=== PATIENT | male | born 1950 | race Caucasian/White ===

== ENCOUNTER → 2016-06-05 | Outpatient (CLI) | payer OTHER ==
[~2016-06-05] VITALS: Ht 182.9 cm; Wt 87.5 kg
[~2016-06-05] MED LIST: ECHCCRMCMP PO; ESOM20CA PO; TAMS0.4C38 PO; ULT/50 PO; VALA500T60 PO
[2016-06-05 13:15] VITALS: BP 125/74; PULSE 57; Ht 182.9 cm; Wt 87.5 kg
== END | disposition home or self-care (01) ==
LOC: C.NEUR 12:34
PROVIDERS: ATTEND Internal Medicine Pulmonary Disease
DX: G47.30 Sleep apnea, unspecified (principal)

== ENCOUNTER → 2017-06-16 | Outpatient (CLI) | payer OTHER ==
--- NOTE | 2017-06-16 11:37 | DIAGNOSTIC IMAGING REPORT ---
ANKLE BRACHIAL INDEX COMPLETE CLINICAL HISTORY: BILATERAL LEG, PERIPHERAL VASCULAR DISEASE COMPARISON STUDY: None. FINDINGS: The right ankle-brachial measured with the posterior tibial artery is 1.0 and the dorsalis pedis artery is 0.91. The left ankle-brachial measure with the posterior tibial artery is 1.0 and the dorsalis pedis artery is 0.94. IMPRESSION: Normal bilateral ankle brachial indices as described above. Electronically signed by: Thomas Pierre M.D. 06/16/2017 11:36 AM Dictated Date/Time: 06/16/2017 11:35 AM
== END | disposition home or self-care (01) ==
LOC: C.ULTR 10:43
PROVIDERS: ATTEND Internal Medicine
DX: I73.9 Peripheral vascular disease, unspecified (principal)

== ENCOUNTER 2025-04-06 06:40 | Observation (INO) ==
--- NOTE | 2025-03-02 13:55 | PAT Medication Instructions ---
Medication Instructions Date of Service March 02, 2025 Home Medications finasteride 5 mg tablet (Proscar) 5 mg PO HS metoprolol succinate 25 mg tablet,extended release 24 hr 25 mg PO QPM tamsulosin 0.4 mg capsule (Flomax) 0.4 mg PO HS famotidine 20 mg tablet 20 mg PO QPM PRN Reflux fluticasone propionate 50 mcg/actuation nasal spray,suspension (Flonase Allergy Relief) 1 spray intranasal BID PRN sinus congestion sildenafil 50 mg tablet (Viagra) 50 mg PO DAILY PRN Sexual Activity cetirizine 10 mg tablet (Zyrtec) 10 mg PO QAM acetaminophen 500 mg tablet 500 mg PO QID PRN Pain cholecalciferol (vitamin D3) 125 mcg (5,000 unit) tablet (Vitamin D3) 125 mcg PO QAM fexofenadine 180 mg tablet 180 mg PO QAM DO NOT take the morning of surgery sildenafil 50 mg tablet (Viagra) 50 mg PO DAILY PRN Sexual Activity cetirizine 10 mg tablet (Zyrtec) 10 mg PO QAM cholecalciferol (vitamin D3) 125 mcg (5,000 unit) tablet (Vitamin D3) 125 mcg PO QAM fexofenadine 180 mg tablet 180 mg PO QAM Take morning of surgery With a small sip of water, OTHERWISE NOTHING TO EAT OR DRINK AFTER MIDNIGHT: famotidine 20 mg tablet 20 mg PO QPM PRN Reflux (if needed) fluticasone propionate 50 mcg/actuation nasal spray,suspension (Flonase Allergy Relief) 1 spray intranasal BID PRN sinus congestion (if needed) acetaminophen 500 mg tablet 500 mg PO QID PRN Pain (if needed) Take evening before surgery finasteride 5 mg tablet (Proscar) 5 mg PO HS metoprolol succinate 25 mg tablet,extended release 24 hr 25 mg PO QPM tamsulosin 0.4 mg capsule (Flomax) 0.4 mg PO HS famotidine 20 mg tablet 20 mg PO QPM PRN Reflux (if needed) fluticasone propionate 50 mcg/actuation nasal spray,suspension (Flonase Allergy Relief) 1 spray intranasal BID PRN sinus congestion (if needed) acetaminophen 500 mg tablet 500 mg PO QID PRN Pain (if needed) Other Notes If you have any questions please call us at [phone] or [phone] or [phone] or [phone]
--- NOTE | 2025-03-10 11:43 | Anesthesiology Consultation ---
Date of Service March 10, 2025 Assessment & Plan (1) Encounter for pre-operative examination: - awaiting surgeon ordered medical clearance, 03/21-Dr. Blank. - cardiology clearance 01/25/25: "...denies any chest pain or chest pressure...cardiomyopathy. Dilated aortic root. PVC...doing well...LV function has returned to normal post ablation...EKG today reveals sinus bradycardia with no ventricular ectopy...tolerating low-dose beta-odell on any palpitations warning signs or symptoms of chronotropic incomplete...knee replacement surgery...can proceed with surgery...risk is about 2% with regards to cardiac complications...will see him back in 6 months with an echo..." - chlorhexidine wipes not provided to patient. Chart Review Chart Review: Pending: Refer to Additional Notes / Consult section and Patient seen in Pre Admission Testing Teaching & Discussion Pre-Anesthesia Teaching/Discussion Notes: Instructed NPO after midnight before surgery, except medications with 15 cc of water. Medication instructions provided according to the PAT guidelines. History Surgery Operation Date: 04/06/25 08:15 Proposed Procedures p Left Total Knee Arthroplasty - Justen Valiente MD Height/Weight Height: 5 ft 11 in Weight: 84.4 kg Allergies Allergy/AdvReac Type Severity Reaction Status Date / Time Iodinated Contrast Media Allergy Severe Anaphylaxis Verified 03/02/25 10:45 chlorhexidine Allergy Mild Rash Verified 03/02/25 10:45 pregabalin AdvReac Intermediate Dizzines, Verified 03/02/25 10:45 "knocked me out" ritonavir [From Paxlovid] AdvReac Intermediate GI upset Verified 03/02/25 10:45 Medications Home Medications Medication Instructions Recorded Confirmed Last Taken finasteride 5 mg tablet (Proscar) 5 mg PO HS 07/09/23 03/02/25 08/09/23 18:00 metoprolol succinate 25 mg 25 mg PO QPM 07/09/23 03/02/25 08/09/23 18:00 tablet,extended release 24 hr tamsulosin 0.4 mg capsule (Flomax) 0.4 mg PO HS 07/09/23 03/02/25 08/09/23 18:00 famotidine 20 mg tablet 20 mg PO QPM PRN Reflux 07/15/23 03/02/25 1 Week Ago ~08/03/23 fluticasone propionate 50 1 spray intranasal BID PRN sinus 07/15/23 03/02/25 1 Month Ago mcg/actuation nasal congestion ~07/12/23 spray,suspension (Flonase Allergy Relief) sildenafil 50 mg tablet (Viagra) 50 mg PO DAILY PRN Sexual Activity 07/15/23 03/02/25 3 Weeks Ago ~07/20/23 cetirizine 10 mg tablet (Zyrtec) 10 mg PO QAM 08/10/23 03/02/25 08/09/23 08:00 acetaminophen 500 mg tablet 500 mg PO QID PRN Pain 12/25/23 03/02/25 Unknown cholecalciferol (vitamin D3) 125 125 mcg PO QAM 12/25/23 03/02/25 Unknown mcg (5,000 unit) tablet (Vitamin D3) fexofenadine 180 mg tablet 180 mg PO QAM 03/02/25 03/02/25 Unknown baclofen 5 mg tablet 5 mg PO DAILY 03/10/25 03/10/25 Unknown Additional Notes: Patient was instructed can continue baclofen as needed, he is no longer taking pregabalin. Past Medical History Medical History Adverse effect of anesthesia "Sometimes when I wake up I spout off and might cuss" BPH (benign prostatic hyperplasia) Degenerative disc disease, lumbar Dilated aortic root [facility] Cardiology Dr Arevalo most recent echo 07/2024 as per cardio note DJD (degenerative joint disease) History of COVID-19 (~2022) 2022- symptoms resolved History of Lyme disease > 10 yrs ago, completed antibiotic tx History of peptic ulcer disease History of shingles x3 Right flank and abdomen 05/2023 > resolved History of skin cancer s/p excision, face and ear-Mohs surgery Hx of gastroesophageal reflux (GERD) controlled, stable per pt Hypertension controlled, stable per pt Moderate tricuspid regurgitation PS Cardiology Dr Arevalo Nonischemic cardiomyopathy [facility] Cardiology Dr Arevalo PVC (premature ventricular contraction) s/p ablation 2020, follows with Dr. Arevalo Sciatica Follows with Dr Shine and has had injections in the past - next is 03/03/25 and to possibly have nerve block 03/16/25 Sleep apnea No device Patient denies h/o stroke, seizures, heart attack, DM, blood clots/DVTs or blood transfusions. Exercise / Class Metabolic Activity II 4-5 Yardwork/Stairs/Walk up hill (denies chest discomfort or shortness of breath with one flight of stairs) Past Family History Family History Other No family history of adverse response to anesthesia Past Surgical History Surgical History H/O arthroscopic knee surgery Right x2, Left x1 H/O arthroscopy of shoulder Right (bone spur removed) H/O cardiac radiofrequency ablation 2020 r/t PVCs History of colonoscopy History of esophagogastroduodenoscopy (EGD) History of repair of pyloric stenosis infancy History of tooth extraction S/P right unicompartmental knee replacement Right uni-compartmental knee replacement (08/10/23): SAB (2 attempts) L3-4 + regional at [facility] Past Anesthesia History No Family Hx of Anesthesia Complications History of PONV No Hx of Motion Sickness and History of PONV Social History Smoking Status: Never smoker Do You Dip or Chew Tobacco: No Hx Alcohol Use: Yes Alcohol type: beer alcohol intake frequency: 0-2 drinks per day Hx Substance Use: No substance use type: does not use Review of Systems Patient denies chest pain, shortness of breath, dyspnea on exertion, fever, chills, cough, wheezing, or palpitations. Physical Exam Vital Signs Vitals BP 102/68 P 52 TEMP 98.1 SP02 98% on RA RESP 17 Physical Patient resting comfortably in chair in no acute distress, alert and oriented, responding appropriately throughout visit Full cervical extension range of motion without pain TMD 3.5 finger breadths Mallampati Score 3 Dentition: several implants, bridge, caps/crowns, denies chipped or loose teeth Lungs: normal respiratory effort. Good air movement, clear throughout to auscultation, no adventitious breath sounds Cardiac: bradycardic, regular rhythm, no murmurs noted Carotid arteries: negative bruit bilat Lab Results Anesthesia Preop Results Results Anesthesia Widget: WBC 4.95 K/ul (4.8-10.8) 03/10/25 Hgb 14.7 g/dl (14.0-18.0) 03/10/25 Hct 42.5 % (42.0-52.0) 03/10/25 Plt 278 K/uL (130-400) 03/10/25 Na 139 mmol/L (136-145) 03/10/25 K 4.6 mmol/L (3.5-5.1) 03/10/25 Cl 104 mmol/L (98-107) 03/10/25 CO2 30 mmol/L (21-32) 03/10/25 BUN 16 mg/dl (6-23) 03/10/25 Creat 0.84 mg/dl (0.6-1.4) 03/10/25 Glucose Level 104 mg/dl (70-99(Fasting)) H 03/10/25 PT 10.9 Seconds (9.0-12.0) 03/10/25 PTT 31 Seconds (21-31) 03/10/25 INR 1.0 (0.9-1.1) 03/10/25 Urine Color Yellow 03/10/25 Urine Appearance Clear (Clear) 03/10/25 Urine pH 6.0 (4.5-7.5) 03/10/25 Urine Specific [place] 1.017 (1.000-1.030) 03/10/25 Urine Protein Negative (Negative) 03/10/25 Urine Glucose (UA) Negative (Negative) 03/10/25 Urine Ketones Negative (Negative) 03/10/25 Urine Blood Negative (Negative) 03/10/25 Urine Nitrite Negative (Negative) 03/10/25 Urine Bilirubin Negative (Negative) 03/10/25 Urine Urobilinogen Negative (Negative) 03/10/25 Urine Leukocyte Esterase Negative (Negative) 03/10/25 Blood Type A Negative 03/10/25 Antibody Screen NEGATIVE 03/10/25 Testing Electrocardiogram Date: 01/25/25 Marked sinus bradycardia, rate 43 bpm Chest X-Ray Date: 03/10/25 No acute findings. Echocardiogram Date: 07/20/23 EF 60% No regional wall motion abnormalities Mild LVH Grade I diastolic dysfunction Moderate RV dilation Mild biatrial dilation Dilated aortic root 4.4 cm, ascending aorta 4 cm and aortic arch 3.6 cm Mild mitral valve regurgitation Moderate tricuspid regurgitation Mildly elevated pulmonary artery pressures, estimated PASP 32 mmHg Stress Test Date: 11/12/20 MPHR 56% METS 8 Negative exercise ECG for ischemia, cannot exclude ischemia at higher heart rates EF 50% Mild global hypokinesis with no regional wall motion abnormalities No LVH
[~2025-04-06 06:40] MED LIST changes: +BUPIVACAINE 0.25% PF 30 ML VIAL ONE; +BUPIVACAINE 0.5 % 5 MG/1 ML PF 10ML VIAL ONE; -ECHCCRMCMP PO; -ESOM20CA PO; -TAMS0.4C38 PO; -ULT/50 PO; -VALA500T60 PO
[2025-04-06] MEDS: LR 500ML BOLUS, THEN 15ML/HR IV SCH (07:21)
[2025-04-06] MEDS: FAMOTIDINE 20 MG TAB PO SCH (07:21)
[2025-04-06] MEDS: dexAMETHasone**PF** 10 MG/ML VIAL IV SCH (07:22)
[2025-04-06] MEDS: CeleBREX 200 MG CAP PO SCH ×2 (07:23→21:29)
[2025-04-06] MEDS: ACETAMINOPHEN 500 MG TAB PO SCH (07:23)
[2025-04-06] MEDS: LR 60ML/HR IV SCH (07:29)
[2025-04-06] MEDS ORDERED: MIDAZOLAM HCL 1 MG/ML 2ML VIAL ONE (07:32)
--- NOTE | 2025-04-06 07:36 | History & Physical Bridge Note ---
Date of Service April 06, 2025 History & Physical Bridge Note I have examined the patient, reviewed the History & Physical and in the interval since the performance of the History & Physical I have noted the following changes of clinical significance: no changes noted
[2025-04-06] MEDS: TRANEXAMIC ACID 1,000 MG **IV Pre-op IV SCH (07:55)
[2025-04-06] MEDS ORDERED: ATROPINE SULFATE 0.1 MG/ML 10ML SYR IV PRN (07:56)
[2025-04-06] MEDS ORDERED: ONDANSETRON INJ 2 MG/ML 2 ML VIAL IV PRN ×2 (07:56→09:56)
[2025-04-06] MEDS ORDERED: HYDROmorphone INJ 1 MG/ML SYRINGE IV PRN (07:56)
[2025-04-06] MEDS ORDERED: PROPOFOL IV EMULSION 10 MG/ML 20 ML VIAL IV ONE (08:23)
[2025-04-06] MEDS ORDERED: ONDANSETRON INJ 2 MG/ML 2 ML VIAL ONE (08:31)
[2025-04-06] MEDS: ORTHO JOINT ANESTHETIC ONE (08:48)
[2025-04-06] MEDS: ROPIV 0.5% 246mg, Ketorolac 30mg, EPINEPHrine 0.5mg in NSS INFIL SCH (09:25)
--- NOTE | 2025-04-06 09:52 | Operative Report ---
Post Operative Report Pre & Post Diagnosis Operation Date: 04/06/25 08:15 Pre-Op Diagnosis: Left Knee Osteoarthritis Post-Op Diagnosis: Left Knee Osteoarthritis I identified the patient and participated in the time-out.: Yes Procedure Operation Date: 04/06/25 08:15 Actual Procedures p Left Total Knee Arthroplasty(Left) - Justen Valiente MD Surgeon Justen Valiente MD [employer] Cattle Farmer LASHAUN Trevino PA-C. No resident or fellow was available to assist. Estimated Blood Loss 50 Findings Consistent with Post-Op Diagnosis Specimens Left knee bone and soft tissue contents Anesthesia Type Spinal MAC Complications none Disposition Disposition: Recovery Room Indications 74-year-old male with left knee osteoarthritis refractory to conservative management. X-rays demonstrate [id number]-caxd disease in the medial compartment of the knee is seen on the PA flexed view. He has a medical history significant for a left knee infection following a cortisone injection about 15 years requiring arthroscopic I&D. He has not had any infectious symptoms since. I had a long discussion with him about the risks and benefits of surgery, alternatives to surgery, and expected outcomes. After reviewing all these he elected to proceed with surgery. All questions were answered. Informed consent was signed. Description of Procedure Patient was identified in the preoperative holding area where the surgical site, left knee, was marked. Spinal anesthetic was placed by anesthesia. Patient was brought back to the operating room, placed on the operating room table, and IV sedation was administered. A bump was placed underneath the ipsilateral hip. All bony prominences were padded. Perioperative antibiotics and tranexamic acid were administered. Exam under anesthesia was performed. This demonstrated range of motion from 3 degrees to 110 degrees. Stable to varus and valgus at 30 degrees. The surgical site was prepped and draped in the normal sterile fashion. Prior to incision a multidisciplinary timeout was called. All in the room were in agreement. We began by exsanguinating the limb with an Esmarch bandage. Tourniquet was inflated to 250 mmHg. A 14 cm long incision was made over the anterior aspect of the knee. I dissected through the subcutaneous tissues to the level of the fascia. Full-thickness flaps were raised above the fascia. A median parapatellar arthrotomy was made. Half the fat pad was excised. A medial release was performed with Bovie electrocautery on the proximal tibia. Synovitis in the knee and suprapatellar pouch was removed. The patella was then everted and held with 2 towel clips. The thickness of the patella was measured at 25 mm. Patellar resection was performed. Caliper showed the patella thickness now to be 15 mm. A size 41 trial was placed and had a great fit. The 3 drill holes were placed then the trial button was placed. The patellar thickness was now 26 mm which I was very happy with. The patellar trial was then removed, and the knee was flexed up. Retractors were placed to protect the MCL and LCL. Osteophytes were removed from the femoral condyles and intercondylar notch. The ACL and PCL were excised. Intramedullary drill guide was drilled into the femur. Distal femoral cutting guide was placed set at 5 degrees of valgus to resect 10 mm off the distal femur. Distal femoral resection was made without difficulty. The tibia was then exposed. The lateral meniscus was sharply excised. The tibial cutting jig was positioned in line with the tibial shaft in the coronal plane and with 3 degrees of posterior slope in the sagittal plane to resect 4 mm off the more involved compartment. The jig was then pinned in position and the tibial cut was made. We then brought the knee into full extension. Lamina spreaders were placed. The medial meniscus was excised. The extension block was then placed for 5 mm thickness poly. This gave us full extension and excellent stability to varus and valgus stress. Next the extension block was removed, the knee was flexed up, collateral ligaments were protected, and the epicondylar axis and Whitesides line were marked out on the distal femoral cut. Femoral sizing guide was placed. External rotation was set at 5 degrees so that the posterior cut would be parallel with the epicondylar axis and perpendicular with Whitesides line. The patient sized to a size 7 femur. 2 pins were then placed through the jig into the distal femur. The jig was removed and the appropriately sized 4-in-1 cutting jig was placed over the pins, then fixated to the bone using threaded, headed pins. We confirmed that we would not notch the femur with our anterior cut. Our 4 cuts were then made. The cutting jig was removed. The flexion block was then placed with the knee held at 90 degrees. There was excellent stability to varus and valgus at 90 degrees with no gapping medially or laterally. Next the box cutting jig was placed on the distal femur. The box cut was made a nd the femoral trial was impacted into position. Lug holes were drilled in the distal femur. We then reexposed the tibia. The tibia was sized to a 7 for a fixed bearing component and pinned in external rotation on the cut tibial surface. The intramedullary drill followed by the keel punch were used to prepare the tibia. The tibial tray with a 5 mm thickness polyethylene liner was placed and the knee was brought through a full range of motion. There was excellent stability to varus valgus stress throughout a full range of motion, which was approximately 0-125 degrees. Next the trial components were removed. I then injected the posterior capsule and periosteum with the periarticular injection cocktail. The bone cuts were then irrigated and dried while the cement was mixed on the back table. The femoral component was cemented on first. Excess cement was removed. A lap sponge was placed over the femoral component for protection, then the tibia was subluxated anteriorly. The all polyethylene tibial component was then cemented in place. Again excess cement was removed. The knee was brought into full extension and held there until the cement cured. The patella was cemented and clamped. Dilute Betadine solution was then allowed to soak in the knee while the cement cured. Once the cement was fully cured, the knee was irrigated out, the tourniquet was let down and meticulous hemostasis was ensured. The knee was brought through a full range of motion. I was were very happy with the patella tracking and the stability. We then began to close. Interrupted 0 Vicryl suture was used to repair the patellar retinaculum in [id number] fashion. The quadriceps and patellar tendons were run with #1 Vicryl. The deep dermal layer was closed with interrupted 2-0 Vicryl. Dermabond and Zipline was used for the skin, followed by a Silverlon dressing. A compressive Kadeem wrap was placed and the knee was placed into a knee immobilizer. Patient's sedation was lifted and was transferred to recovery room in stable condition. Summary of implants: Depuy Attune Posterior Stabilized Cemented Femur, size 7 left Attune All-polyethylene tibial component, posterior stabilized 5 mm thickness, size 7 Attune patella medialized dome, size 41 2 batches of Palacos bone cement Postoperative course: Patient will be admitted to the floor for pain control and monitoring. Weightbearing as tolerated with a walker with no knee range of motion for 48 hours. Aspirin for DVT prophylaxis. I attest to the content of the Intraoperative Record and any orders documented therein. Any exceptions are noted below.
--- NOTE | 2025-04-06 09:53 | Operative Report ---
Post Operative Report Pre & Post Diagnosis Operation Date: 04/06/25 08:15 Pre-Op Diagnosis: Left Knee Osteoarthritis Post-Op Diagnosis: Left Knee Osteoarthritis I identified the patient and participated in the time-out.: Yes Procedure Operation Date: 04/06/25 08:15 Actual Procedures p Left Total Knee Arthroplasty(Left) - Justen Valiente MD Surgeon Justen Valiente MD Barn Operator Blair Trevino PA-Jonathan Estimated Blood Loss 50 Findings Consistent with Post-Op Diagnosis Specimens Left knee bone and soft tissue; left knee synovium Description of Procedure I was present during the entire case assisting with positioning, prepping, draping, wound retraction, wound closure, dressing and immobilizer placement. No fellow present. Please see Dr. Valiente operative note for specifics of the case. I attest to the content of the Intraoperative Record and any orders documented therein. Any exceptions are noted below.
[2025-04-06] MEDS ORDERED: MAGNESIUM HYDROXIDE SUSP 30 ML UDC PO PRN (09:56)
[2025-04-06] MEDS ORDERED: ALUMINUM/MAGNESIUM SUSP 30 ML UDC PO PRN (09:56)
[2025-04-06] MEDS ORDERED: METOCLOPRAMIDE HCL INJ 5 MG/ML 2 ML VIAL IV PRN (09:56)
[2025-04-06] MEDS ORDERED: HYDROmorphone INJ 0.5 MG/0.5 ML SYR IV PRN (09:56)
[2025-04-06] MEDS ORDERED: NALOXONE HCL 0.4 MG/1 ML VIAL/CARP IV PRN (09:56)
--- NOTE | 2025-04-06 10:25 | XRay Report ---
XR knee LT 1 or 2V routine CLINICAL HISTORY: Postoperative evaluation. COMPARISON: Left knee radiographs March 10, 2025. FINDINGS: Alignment of the total left knee arthroplasty is anatomic. There is no periprosthetic frac ture or unexpected radiopaque foreign body. There is a polyethylene tibial component. IMPRESSION: Expected findings following total left knee arthroplasty. ACT 112: Negative or not required by law. Electronically signed by: Luis Antonio Lambert M.D. 04/06/2025 10:24 AM
--- NOTE | 2025-04-06 10:29 | Anesthesiology Progress Note ---
Date of Service April 06, 2025 Anesthesia Post Procedure Vital Signs Vital Signs: Temp Pulse Pulse Resp BP Pulse Ox O2 Del Method 04/06/25 10:15 59 L 15 123/67 92 Room Air 04/06/25 10:10 36.4 C L 59 L 21 123/72 95 Room Air 04/06/25 10:00 59 L 16 126/66 95 Room Air 04/06/25 09:52 36.1 C L 59 L 21 113/68 96 Room Air 04/06/25 07:37 36.6 C 61 20 150/85 H 96 Room Air Transfer of Care Handoff Completed per policy Notes Mental Status: alert / awake / arousable and participated in evaluation Patient Amnestic to Procedure: Yes Nausea / Vomiting: adequately controlled Pain: adequately controlled Airway Patency, RR, SpO2: stable & adequate BP & HR: stable & adequate Hydration State: stable & adequate Neuraxial Anesthesia: was administered and sensory block is resolving Anesthetic Complications: no major complications apparent and Pt Satisfied with anesthetic care
[2025-04-06] MEDS ORDERED: FLUTICASONE PROPIONATE NA SPR 16 GM BTL NAE PRN (12:08)
[2025-04-06] MEDS ORDERED: NON-FORMULARY MEDICATION (Sildenafil [Viagra] 50 mg Tablet) PO PRN (12:08)
[2025-04-06] MEDS ORDERED: FAMOTIDINE 20 MG TAB PO PRN (12:08)
[2025-04-06] MEDS: SODIUM CHLORIDE 0.9% 1,000 ML IV SCH (12:35)
[2025-04-06] MEDS: KETOROLAC TROMETHAMINE 15 MG/ML VIAL IV SCH (12:36)
[2025-04-06] MEDS: Scopolamine CHECK PATCH PLACEMENT SCH (16:22)
[2025-04-06] MEDS: ACETAMINOPHEN 500 MG TAB PO PRN (19:27)
[2025-04-06] MEDS: METOPROLOL SUCC 25MG EXT REL TAB PO SCH (21:25)
[2025-04-06] MEDS: DOCUSATE SODIUM 100 MG CAP PO SCH (21:29)
[2025-04-06] MEDS: FINASTERIDE 5 MG TAB PO SCH (21:29)
[2025-04-06] MEDS: SENNA 8.6 MG TAB PO SCH (21:29)
[2025-04-06] MEDS: TAMSULOSIN HCL 0.4 MG CAP PO SCH (21:29)
[2025-04-07 06:40] LABS: Hematocrit (blood only) 35.7 % (42.0-52.0); Hemoglobin 12.5 g/dl (14.0-18.0); Mean Corpuscular Hemoglobin 31.2 pg (25.0-34.0); Mean Corpuscular Volume 89.0 fL (80.0-100.0); Platelet Count 229 K/uL (130-400); RDW Standard Deviation 40.6 fL (36.4-46.3); Red Blood Count 4.01 M/uL (4.70-6.10); White Blood Count 11.73 K/ul (4.8-10.8)
[2025-04-07 06:59] LABS: Anion Gap 7.0 (3-11); Blood Urea Nitrogen 22.0 mg/dl (6-23); Calcium 8.3 mg/dl (8.6-10.3); Carbon Dioxide 25.0 mmol/L (21-32); Chloride 109.0 mmol/L (98-107); Creatinine Clr Calc Pharmacy 59.0 ml/min; Glucose 94.0 mg/dl (70-99(Fasting)); Potassium 3.8 mmol/L (3.5-5.1); Sodium 141.0 mmol/L (136-145)
[2025-04-07] MEDS: MULTIVITAMIN TAB PO SCH (08:39)
[2025-04-07] MEDS: CETIRIZINE HCL 10 MG TABLET PO SCH (08:40)
[2025-04-07] MEDS: ASPIRIN 81 MG ECTAB PO SCH (08:40)
[2025-04-07] MEDS: FEXOFENADINE HCL 180 MG TAB PO SCH (08:40)
[2025-04-07] MEDS: CHOLECALCIFEROL 125 MCG (5,000 UNITS) TAB PO SCH (08:41)
[2025-04-07] MEDS: BACLOFEN 10 MG TAB PO SCH (08:43)
[2025-04-07] MEDS: dexAMETHasone 10 MG in SYRINGE 0 ML IV SCH (08:44)
--- NOTE | 2025-04-07 09:28 | Orthopedic Progress Note ---
Date of Service April 07, 2025 Assessment & Plan (1) S/P total knee arthroplasty: Plan: PT/OT Weightbearing as tolerated with walker assistance Immobilizer use x 48 hours postop Ice with easy wrap Pain control with p.o. medication DVT prophylaxis with aspirin and HARITHA stockings Hospitalist consult placed due to confusion Plan is to discharge home with in-home physical therapy later today, however this is pending hospitalist evaluation Follow-up at [facility] orthopedics as previously scheduled With questions contact our clinic at [phone] Admission and Anticipated Discharge Date Admission Date: April 06, 2025 Subjective This 74-year-old male is day 1 status post left total knee arthroplasty. Patient is very confused this morning. This is very different from his baseline. Last night he also had to be straight cath because he was unable to void. Patient states that he has been moving his leg. He states that he has no pain. He verbalized that he is here to have his knee replaced and does not know that he had the procedure performed yesterday. I saw him yesterday evening and he was doing very well without any issues. The symptoms developed earlier this morning. Patient denies chest pain, shortness of breath, fever, chills, sweats, nausea, vomiting, diarrhea or numbness or tingling in his left lower extremity. Review of Systems Review of Systems: All systems reviewed & are unremarkable except as noted in Subjective Physical Exam Physical Exam: Left knee; Outer dressing was removed. Silverlon is clean dry and intact left in place. Active knee range of motion is from 0 degrees of extension to 90 degrees of flexion. Patient is able to easily perform an active straight leg raise test and actively dorsi and plantarflex foot against resistance without difficulty. His quad strength is 4 out of 5. He is neurovascularly intact in his left lower extremity. Results & Data Vital Signs (Past 12 Hours) Vital Signs Temp Pulse Resp BP Pulse Ox O2 Del Method 04/07/25 06:57 36.4 C L 55 L 16 106/61 97 Room Air 04/07/25 03:32 36.7 C 49 L 18 111/58 L 95 Room Air 04/06/25 22:46 36.6 C 50 L 18 90/54 L 95 Room Air 04/06/25 21:36 42 L 93/49 L Diagnostic Findings Laboratory Results WBC 11.73 K/ul (4.8-10.8) H 04/07/25 06:11 RBC 4.01 M/uL (4.70-6.10) L 04/07/25 06:11 Hgb 12.5 g/dl (14.0-18.0) L 04/07/25 06:11 Hct 35.7 % (42.0-52.0) L 04/07/25 06:11 MCV 89.0 fL (80.0-100.0) 04/07/25 06:11 MCH 31.2 pg (25.0-34.0) 04/07/25 06:11 MCHC 35.0 g/dL (32.0-36.0) 04/07/25 06:11 RDW Std Deviation 40.6 fL (36.4-46.3) 04/07/25 06:11 RDW Coeff of Nivia 12.4 % (11.5-14.5) 04/07/25 06:11 Plt Count 229 K/uL (130-400) 04/07/25 06:11 MPV 9.9 fL (9.4-12.4) 04/07/25 06:11 Sodium 141 mmol/L (136-145) 04/07/25 06:11 Potassium 3.8 mmol/L (3.5-5.1) 04/07/25 06:11 Chloride 109 mmol/L (98-107) H 04/07/25 06:11 Carbon Dioxide 25 mmol/L (21-32) 04/07/25 06:11 Anion Gap 7 (3-11) 04/07/25 06:11 BUN 22 mg/dl (6-23) 04/07/25 06:11 Creatinine 1.17 mg/dl (0.6-1.4) 04/07/25 06:11 Est Cr Clr Drug Dosing 59.0 ml/min 04/07/25 06:11 eGFR 65.42 04/07/25 06:11 BUN/Creatinine Ratio 18.8 (10-20) 04/07/25 06:11 Glucose 94 mg/dl (70-99(Fasting)) 04/07/25 06:11 POC Glucose 99 mg/dl (70-99) 04/07/25 03:32 Calcium 8.3 mg/dl (8.6-10.3) L 11/07/25 06:11 Impressions Knee X-Ray 04/06/25 09:56 XR knee LT 1 or 2V routine CLINICAL HISTORY: Postoperative evaluation. COMPARISON: Left knee radiographs March 10, 2025. FINDINGS: Alignment of the total left knee arthroplasty is anatomic. There is no periprosthetic fracture or unexpected radiopaque foreign body. There is a polyethylene tibial component. IMPRESSION: Expected findings following total left knee arthroplasty. ACT 112: Negative or not required by law. Electronically signed by: Luis Antonio Lambert M.D. 04/06/2025 10:24 AM
[2025-04-07] MEDS: REMOVE TRANSDERM-SCOP PATCH ONE (09:45)
--- NOTE | 2025-04-07 10:55 | Hospitalist Consultation ---
Date of Consultation April 07, 2025 Assessment & Plan (1) S/P total knee arthroplasty: (2) Delirium: (3) Urinary retention: Plan This is a 74 year old with past medical history of BPH, GERD, nonischemic cardiomyopathy who presented to the hospital on 06/06/2024 for an elective total left knee arthroplasty with Dr. Valiente. The hospitalist team was consulted post - operatively for urinary retention and confusion. #s/p Left total knee arthroplasty Operation on 04/06 w/ Dr. Valiente DVT prophylaxis, pain management, bowel regimen, PT/OT, diet, & discharge planning per primary team #Delirium w/ onset of confusion & hallucinations post-operatively. Has mild memory issues at baseline. States no alcohol use for ~ 35 years. Likely secondary to anesthesia but obtain UC to rule out UTI in setting of urinary retention. CBC/BMP appear stable. WBC elevated mildly but secondary to recent operation & suspect this will normalize Limit sedating medications including opioids. #Urinary retention in the setting of BPH + recent anesthesia s/p straight cath on 04/07 for ~ 600cc urine Continue to bladder scan after urination. Recommend repeating straight cath if >500 cc urine retained in bladder. Obtain UC as above. Continue Flomax & finasteride. #nonischemic cardiomyopathy - recent echo 07/2024 w/ EF of 55-60%; continue metoprolol Code: full Thank you for this consult, we will continue to follow along. Please reach out with questions or concerns. Supervising Physician Co-Signing Physician Notes PA Supervision Note: I personally saw and examined the patient. I verified all cardoso points and agree with JJ Luna with the following exceptions and/or additions: S-Pt doing well, pain controlled, required straight cath this AM. He is confused a bit and telling me stories about his 's recent ablation. Redirectable. History reviewed O- Vitals reviewed Gen: [AAOx3, NAD] HEENT: [anicteric sclerae, EOMI] CV: [RRR no mgr nl S1S2] Pulm: [CTAB no wcr] Ext: LLE in knee immobilizer not removed CBC, BMP reviewed A/P-74 yo male with history as above, here for left TKA, with some post-op delirium an urine retention. Improving, mild confusion likely from hospital delirium Monitor for urine retention, avoid opioids, supportive care History of Present Illness Attending Physician: Justen Valiente MD History of Present Illness This is a 74 year old with past medical history of BPH, GERD, nonischemic cardiomyopathy who presented to the hospital on 06/06/2024 for an elective total left knee arthroplasty with Dr. Valiente. The hospitalist team was consulted post - operatively for urinary retention and confusion. Sergio was seen & examined this morning. he reports he is doing well today. States he has noticed some memory issues at baseline but does not recall being this confused in the past. 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 He has not had any narcotics thus far today prior to my encounter. He states he does follow w/ urology for his BPH & does not have a history of having a harmon catheter. He denies any CP, SOB, abdominal pain, N/V. States he moved his bowels this morning. States he has a tremor at baseline which is normal for him. Denies any additional complaints. Per nursing, patient has been confused & has had intermittent hallucinations overnight. Nursing reports he is able to list his medications in detail but did not know what a walker was. He was straight cathed this morning for ~ 600cc of urine out. Allergies Allergy/AdvReac Type Severity Reaction Status Date / Time Iodinated Contrast Media Allergy Severe Anaphylaxis Verified 04/06/25 07:06 chlorhexidine Allergy Mild Rash Verified 04/06/25 07:06 pregabalin AdvReac Intermediate Dizzines, Verified 04/06/25 07:06 "knocked me out" ritonavir [From Paxlovid] AdvReac Intermediate GI upset Verified 04/06/25 07:06 Home Medications Medication Instructions Recorded Confirmed Type finasteride 5 mg tablet (Proscar) 5 mg PO HS 07/09/23 04/06/25 History metoprolol succinate 25 mg 25 mg PO QPM 07/09/23 04/06/25 History tablet,extended release 24 hr tamsulosin 0.4 mg capsule (Flomax) 0.4 mg PO HS 07/09/23 04/06/25 History famotidine 20 mg tablet 20 mg PO QPM PRN Reflux 07/15/23 04/06/25 History fluticasone propionate 50 1 spray intranasal BID PRN sinus 07/15/23 04/06/25 History mcg/actuation nasal congestion spray,suspension (Flonase Allergy Relief) sildenafil 50 mg tablet (Viagra) 50 mg PO DAILY PRN Sexual Activity 07/15/23 04/06/25 History cetirizine 10 mg tablet (Zyrtec) 10 mg PO QAM 08/10/23 04/06/25 History acetaminophen 500 mg tablet 500 mg PO QID PRN Pain 12/25/23 04/06/25 History cholecalciferol (vitamin D3) 125 125 mcg PO QAM 12/25/23 04/06/25 History mcg (5,000 unit) tablet (Vitamin D3) fexofenadine 180 mg tablet 180 mg PO QAM 03/02/25 04/06/25 History baclofen 5 mg tablet 5 mg PO DAILY 03/10/25 04/06/25 History aspirin 81 mg tablet,delayed 81 mg PO BID DVT prophylaxis 30 04/07/25 Rx release days #60 tabs cephalexin 500 mg capsule 500 mg PO TID post op infection 04/07/25 Rx prophylaxis 5 days #15 caps diclofenac sodium 75 mg 75 mg PO BID Post op pain and 04/07/25 Rx tablet,delayed release inflammation relief 30 days #60 tabs oxycodone 5 mg tablet 5 - 10 mg (1 - 2 x 5 mg) PO Q4H 04/07/25 Rx PRN Post op pain control #28 tabs Patient History Medical History Adverse effect of anesthesia "Sometimes when I wake up I spout off and might cuss" BPH (benign prostatic hyperplasia) Degenerative disc disease, lumbar Dilated aortic root PS Cardiology Dr Arevalo most recent echo 07/2024 as per cardio note DJD (degenerative joint disease) History of COVID-19 (~2022) 2019, 2022- symptoms resolved History of Lyme disease > 10 yrs ago, completed antibiotic tx History of peptic ulcer disease History of shingles x3 Right flank and abdomen 05/2023 > resolved History of skin cancer s/p excision, face and ear-Mohs surgery Hx of gastroesophageal reflux (GERD) controlled, stable per pt Hypertension controlled, stable per pt Moderate tricuspid regurgitation PS [facility]iology Dr Arevalo Nonischemic cardiomyopathy [facility] Cardiology Dr Arevalo PVC (premature ventricular contraction) s/p ablation 2020, follows with Dr. Fragin Sciatica Follows with Dr Shine and has had injections in the past - next is 03/03/25 and to possibly have nerve block 03/16/25 Sleep apnea No device Surgical History H/O arthroscopic knee surgery Right x2, Left x1 H/O arthroscopy of shoulder Right (bone spur removed) H/O cardiac radiofrequency ablation 2020 r/t PVCs History of colonoscopy History of esophagogastroduodenoscopy (EGD) History of repair of pyloric stenosis infancy History of tooth extraction S/P right unicompartmental knee replacement Right uni-compartmental knee replacement (08/10/23): SAB (2 attempts) L3-4 + regional at [facility] Family History Other No family history of adverse response to anesthesia Social History Smoking Status: Never smoker Second Hand Exposure: No; Do You Dip or Chew Tobacco: No; Tobacco Cessation Education Requested by Patient: No Hx Alcohol Use: Yes Alcohol type: beer Hx Substance Use: No Preferred Language: Arabic Communication Ability: Effective Head Sulfide Operator Required: No Beliefs That Will Affect Care: None Current Living Situation: Spouse Other Information That Helps Us Care for You: No Feels Safe at Home: Yes Safety Concerns: Feels Safe At This Time Assistive Devices: Walker Assistive Devices Comment: x3 Dental Implants Physical Exam Physical Exam: General: NAD, VS: BP 106/61; P55; R16; T36.4C Resp: normal respiratory effort, lungs clear to auscultation CV: RRR, no murmur Abd: normal bowel sounds, non tender Extremities: no edema Neuro: A&O x3 Skin: intact, no lesions noted Results & Data Results & Data Vital Signs (Past 12 Hours) Vital Signs Temp Pulse Resp BP Pulse Ox O2 Del Method 04/07/25 06:57 36.4 C L 55 L 16 106/61 97 Room Air 04/07/25 03:32 36.7 C 49 L 18 111/58 L 95 Room Air PG Care Time/CCT Total # of Minutes Spent Total Time Spent with Patient: Total time spent is greater than 50% in coordination of care (as documented) at patient's floor/unit and/or counseling patient: Coding Level of Care Code 73170 IN/OBS CONSULT LVL 3,45M Diagnoses S/P total knee arthroplasty Z96.659 Delirium R41.0 Urinary retention R33.9
--- NOTE | 2025-04-07 15:03 | Discharge Summary ---
Date of Service April 07, 2025 Principal Diagnosis Left knee osteoarthritis Discharge Exam Left knee; Outer dressing was removed. Silverlon is clean dry and intact left in place. Active knee range of motion is from 0 degrees of extension to 90 degrees of flexion. Patient is able to easily perform an active straight leg raise test and actively dorsi and plantarflex foot against resistance without difficulty. His quad strength is 4 out of 5. He is neurovascularly intact in his left lower extremity. Discharge Data Allergies Allergy/AdvReac Type Severity Reaction Status Date / Time Iodinated Contrast Media Allergy Severe Anaphylaxis Verified 04/06/25 07:06 chlorhexidine Allergy Mild Rash Verified 04/06/25 07:06 pregabalin AdvReac Intermediate Dizzines, Verified 04/06/25 07:06 "knocked me out" ritonavir [From Paxlovid] AdvReac Intermediate GI upset Verified 04/06/25 07:06 Consultations 04/07/25 07:44 Consult Hospitalist Routine Procedures Performed Operation Date: 04/06/25 08:15 Actual Procedures p Left Total Knee Arthroplasty(Left) - Justen Valiente MD Ordered Studies 04/06/25 05:00 US - OR guided needle placemen Routine Hospital Course (1) S/P total knee arthroplasty: Patient had a complicated stay following Left total knee arthroplasty. Last night he developed confusion w/ hallucinations and urinary retention that requires straight catheterization. He is slightly better today but is still confused. He is now able to urinate. Was evaluated by hospitalist service and had urine culture ordered (results pending). Patient will be admitted for an additional night and be discharged tomorrow AM. The Keflex that was prescribed post op should cover a UTI if one if bacteria is present on culture results. PT/OT Weightbearing as tolerated with walker assistance Immobilizer use x 48 hours postop Ice with easy wrap Pain control with p.o. medication DVT prophylaxis with aspirin and HARITHA stockings Hospitalist consult placed due to confusion Plan is to discharge home with in-home physical therapy tomorrow, however this is pending hospitalist evaluation Follow-up at [facility] orthoped[facility] as previously scheduled With questions contact our clinic at [phone] Total Time Total Time Spent Total Time Spent (In Minutes): 50 Mins Discharge Plan Discharge Items Patient Disposition: Home - Home Health Services Reason For Visit: Left Knee Osteoarthritis Discharge Diagnosis: s/p left total knee arthroplasty Activity: As commented below Lifting: None Bathing: Keep incision dry Bathing Comment: May shower later today Sexual Activity: Wait until after follow-up appointment Exercise/Sports: Wait until after follow-up appointment Driving/Machine Use: No driving until cleared by administrative and program specialist Weightbearing: Left weightbearing Weightbearing Comment: As tolerated with walker assistance Non-emergency contact: Surgeon Call non-emergency contact if: you have any medication questions, your pain is not controlled, your temperature is above 101.5, your wound has increased drainage and your wound pain has increased Follow-up/Referrals: Celena Blank MD [Primary Care Provider] - Diet: Regular Addtl Attending Provider Instructions: Post-operative Instructions Dear Patient and Family/Friends, Before you are discharged from the hospital, it is important to know what to expect when you get home after surgery. To that end, we have created this sheet of discharge instructions which covers many commonly asked questions. Make sure you go through this sheet in its entirety with your nurse before you are disc harged. Please note that we will go over the specifics of your surgery and recovery when you return for your first post-operative visit. Sincerely, Dr. Valiente Medications 1. Oxycodone 5 mg take 1 to 2 tablets every 4-6 hours as needed for postoperative pain control. A prescription for this medication will be sent to your pharmacy. 2. Diclofenac sodium 75 mg: Take 1 tablet twice daily for the first 30 days postoperatively for pain and inflammation relief. A prescription for this medication will be sent to your pharmacy with 1 refill. 3. Aspirin 81 mg: Take 1 tablet twice daily for the first 30 days postoperatively for blood clot prevention. Please purchase this medication. 4. Extra strength Tylenol 500 mg: Take 2 tablets every 6-8 hours as needed for additional supplemental pain control. You may take this with every other dose of the oxycodone. Please purchase this medication. 5. Cephalexin 500 mg: Take 1 tablet 3 times daily for the first 5 days postoperatively for infection prophylaxis. This will be sent to your pharmacy. Pain Expect to be in a fair amount of pain after surgery. Remember, our goal is not to eliminate your pain, but to make it tolerable. It is a good idea to stay ahead of your pain by taking the medications you were prescribed once you get home. Typically, the pain starts improving 3-7 days after surgery. You should start weaning off the narcotic pain medication (oxycodone, hydrocodone, hydromorphone, morphine) as soon as your pain improves. Please call our office if your pain is not adequately controlled. Ice Ice your operative site at least 5 times a day for 15-30 minutes at a time. Make sure you have a thin cloth between the ice or cooling unit and your skin to prevent alan bite. This is especially important if you received a nerve block. Continue icing your operative site for the first 5-7 days after surgery, then as needed. Diet/Nausea/Vomiting Start by drinking clear liquids and eating crackers. If you can tolerate this, then you may resume your normal diet. If you feel nauseated or vomit, take Zofran/ondansetron (if prescribed). Please call our office if you have intractable nausea or vomiting, or, if after hours, you may go to the Emergency Room for help. Constipation Constipation is a common side effect of narcotic pain medication. If you have not had a bowel movement within 2 days after surgery, we recommend purchasing an over the counter laxative such as Milk of Magnesia, Dulcolax, or Miralax from a local pharmacy, and taking it as instructed. Call our clinic if any questions. Slings and Braces If you were placed in a sling or brace, it must be worn at all times, including sleep. You may remove your sling or brace for physical therapy, home exercises, and showering. The length of time you will be in your brace and range of motion restrictions depends on what surgery you had; these details will be reviewed at your first post-operative appointment. Nerve block The anesthesia team sometimes places a nerve block to help with post-operative pain control. This results in significant numbness and inability to move the extremity. The nerve block usually wears off in 8-12 hours, but sometimes can last up to 24 hours. Please call our office if you are still unable to move your extremity after 24 hours, unless you received a pain pump to take home. Nerve blocks typically wear off quickly, so start taking pain medication as soon as you start feeling soreness near your surgical site. Weight bearing and Range of Motion. Do not bear any weight through your operative extremity immediately after surgery. If you had upper extremity surgery, do not lift anything with that arm. If you are in a knee brace, keep it locked in place until your follow-up. We will discuss your weight bearing, range of motion, and lifting restrictions in detail at your first post-operative appointment. Continuous Passive Motion (CPM) Machine If you were prescribed a CPM machine, it will start after your first post- operative appointment, at which time we will give you instructions on the range of motion settings and duration of treatment Physical therapy You will be given a prescription for physical therapy or occupational therapy at your first post-operative appointment. Typically, patients start therapy within 1 week of surgery Wound care and showering We will inspect your wound at your first post-operative visit, and may do a dressing change at that time. Most patients will be in a water-proof dressing that is removed 14 days after surgery. It is normal to see some dried blood on the dressing. Do not remove your dressing, paper strips or sutures yourself unless you are given permission. Showering is allowed the day after surgery. Do not scrub or remove any dressings. The wound should not be submerged underwater (i.e. in a bathtub or pool) until 4 weeks after surgery HARITHA stockings If you were given white stockings, these are to be worn at all times except to shower (on both legs) for the first 2 weeks after surgery. Driving You may not drive while taking narcotic pain medication or while in a cast, splint, sling or brace. You, the patient, need to make the final determination about when you are safe to drive, however, the earliest you may consider driving after surgery is below: Hand/Wrist/Elbow Surgery: 3 days Shoulder Surgery: 2 weeks Hip,/Knee/Ankle Surgery: 4 weeks Fracture repair: 6 weeks Return to Work Your return to work depends on what surgery was done and what type of work you do. Please bring any paperwork your employer needs completed to your first p ost-operative visit. Also, bring a description of your job duties, as this helps us to understand what risks you may face at work. Travel Avoid long distance travel (greater than 1 hour) in airplanes and cars for the first 6 weeks after surgery. If you must travel, you need to have a Doppler ultrasound done before you travel to rule out a blood clot in your legs. Follow-up You should have a follow-up appointment already scheduled 1-2 days after surgery. If not, please contact our office to make this appointment before you leave the hospital. When to call the office It is normal to have swelling and bruising in the limb that was operated on. This will improve with time. It is also normal to have fevers for the first 2 days after surgery. Reasons you should call your doctor include: Uncontrolled pain; Nausea, vomiting, or constipation that does not improve with medication; Fevers over 101.5, chills, sweats; Drainage or bleeding from the wound; Foul odor; Spreading areas of redness; Any other concerns. Contact Information Please call Dr. Valiente's office at [phone] with any concerns. Pending Studies at Discharge: No Stand-Alone Forms: My [facility] Medications and DC Order Prescriptions: New aspirin 81 mg Tablet,Delayed Release (Dr/Ec) 81 mg PO BID 30 Days Qty: 60 0RF oxycodone 5 mg Tablet 5 - 10 mg PO Q4H MDD Max 6/day PRN (Reason: Post op pain control) Qty: 28 0RF diclofenac sodium 75 mg tablet,delayed release (DR/EC) 75 mg PO BID 30 Days Qty: 60 1RF cephalexin 500 mg capsule 500 mg PO TID 5 Days Qty: 15 0RF Continued tamsulosin [Flomax] 0.4 mg Capsule 0.4 mg PO HS metoprolol succinate 25 mg Tablet Extended Release 24 Hr 25 mg PO QPM finasteride [Proscar] 5 mg Tablet 5 mg PO HS sildenafil [Viagra] 50 mg Tablet 50 mg PO DAILY PRN (Reason: Sexual Activity) Rx Instructions: administer 30 minutes to 4 hours before activity famotidine 20 mg Tablet 20 mg PO QPM PRN (Reason: Reflux) fluticasone propionate [Flonase Allergy Relief] 50 mcg/actuation [place],Suspension 1 spray INTRANASAL BID PRN (Reason: sinus congestion) Rx Instructions: administer into each nostril cetirizine [Zyrtec] 10 mg Tablet 10 mg PO QAM Rx Instructions: alternate with Joceline cholecalciferol (vitamin D3) [Vitamin D3] 125 mcg (5,000 unit) Tablet 125 mcg PO QAM acetaminophen 500 mg Tablet 500 mg PO QID PRN (Reason: Pain) fexofenadine 180 mg Tablet 180 mg PO QAM Rx Instructions: Alternate with Cetitizine baclofen 5 mg Tablet 5 mg PO DAILY Admission Data Admit Date/Time: 04/07/25 14:56 Attending Provider: Justen Valiente Admit Provider: Justen Valiente Primary Care Provider: Celena Blank Other Providers: [facility]; Al Luo
[2025-04-08] MEDS: diphenhydrAMINE 50 MG/ML VIAL IV PRN (02:26)
[2025-04-08] MEDS: diphenhydrAMINE Capsule 25 MG CAP PO ONE (02:49)
[2025-04-08 07:19] VITALS: BP 136/70; PULSE 54; RESP 16; TEMP 97.7; O2SAT 93
[2025-04-09] MEDS ORDERED: Scopolamine REMOVE TRANSDERM PATCH ONE (08:00)
== END 2025-04-08 10:17 | disposition home health service (06) | DRG 470 ==
LOC: 3E 06:40 → ASU 06:40
DX: I10 Essential (primary) hypertension; M17.12 Unilateral primary osteoarthritis, left knee; I42.8 Other cardiomyopathies; Z79.899 Other long term (current) drug therapy; Z88.8 Allergy status to other drugs, medicaments and biological substances; Z91.041 Radiographic dye allergy status; G47.33 Obstructive sleep apnea (adult) (pediatric); Z88.3 Allergy status to other anti-infective agents; I49.3 Ventricular premature depolarization